=== PATIENT | male | born 1965 ===

== ENCOUNTER 2021-08-13 06:42 | Emergency (ER) | payer OTHER ==
[~2021-08-13] VITALS: Ht 182.9 cm; Wt 81.6 kg
[2021-08-13 07:46] VITALS: BP 123/77
== END 2021-08-13 09:03 | disposition home or self-care (01) ==
LOC: ER 06:42 → EDBD 06:42 → ER 09:03
DX: S93.401A Sprain of unspecified ligament of right ankle, initial encounter (principal); S80.12XA Contusion of left lower leg, initial encounter; V43.52XA Car driver injured in collision with other type car in traffic accident, initial encounter; Y93.89 Activity, other specified; Y92.410 Unspecified street and highway as the place of occurrence of the external cause; Y99.8 Other external cause status
CPT/HCPCS: 73590; 73610